=== PATIENT | male | born 1960 | race African-American/Black ===

== ENCOUNTER 2018-10-11 11:25 | Emergency (ER) | payer OTHER ==
[2018-10-11] MEDS ORDERED: PROPARACAINE 0.5% OPHTH DROPS 15 ML EACHEYE STA (12:16)
--- NOTE | 2018-10-11 12:18 | ED Physician Documentation ---
History of Present Illness - Stated complaint Stated Complaint: BRAMBILA - Chief complaint Chief Complaint: Cardiac - History obtained from History obtained from: Patient - History of Present Illness Timing: Yesterday (57-year-old gent with history of hypertension maintained for several years on stable dose of losartan. His last blood pressure check he thinks was probably a month or 2 ago at which time he estimates it was probably 140/95. Since yesterday he is had right upper eyelid swelling and a mild headache that is certainly not the worst headache of his life. He says he frequently gets headaches. It started behind the right eye and spread out across the forehead. He went to his primary care physician for this today and blood pressures were noted to be elevated so he was referred here for further evaluation and treatment. He also has nonspecific dizziness, not vertigo and not really lightheadedness. He denies weakness, numbness, tingling, fevers, neck stiffness.) Review of Systems Constitutional: denies: Fever, Chills Cardiac: denies: Chest pain / pressure, Palpitations Respiratory: denies: Dyspnea, Cough GI: denies: Abdominal Pain, Nausea, Vomiting, Constipation, Diarrhea : denies: Dysuria, Frequency PD PAST MEDICAL HISTORY - Past Medical History Past Medical History: Yes Cardiovascular: Hypertension Psych: Anxiety - Past Surgical History Past Surgical History: Yes Ortho: Rotator cuff repair, Spine surgery - Present Medications Home Medications: Ambulatory Orders Medication Instructions Recorded Confirmed Losartan [Cozaar] 25 mg PO DAILY 10/11/18 10/11/18 amLODIPine [Norvasc] 10 mg PO DAILY #30 tablet 10/11/18 - Allergies Allergies/Adverse Reactions: Allergies Allergy/AdvReac Type Severity Reaction Status Date / Time No Known Drug Allergies Allergy Verified 10/11/18 11:33 - Social History Does the pt smoke?: No Smoking Status: Never smoker Does the pt drink ETOH?: No Does the pt have substance abuse?: No - Immunizations Immunizations are current?: Yes - POLST Patient has POLST: No PD ED PE NORMAL - Vitals Vital signs reviewed: Yes - General General: Alert and oriented X 3, No acute distress - HEENT HEENT: PERRL, EOMI, Other ([place] 21OD, 20 OS; v mild angioedema, upper R lid, no stye) - Neck Neck: Supple, no meningeal sign, No bony TTP - Cardiac Cardiac: RRR, No murmur - Respiratory Respiratory: No respiratory distress, Clear bilaterally - Abdomen Abdomen: Normal bowel sounds, Soft, Non tender - Back Back: No CVA TTP, No spinal TTP - Derm Derm: Normal color, Warm and dry - Extremities Extremities: No edema, No calf tenderness / cord - Neuro Neuro: Alert and oriented X 3, records associate 2-12 intact, No motor deficit, No sensory deficit, Normal speech Eye Opening: Spontaneous Motor: Obeys Commands Verbal: Oriented GCS Score: 15 - Psych Psych: Normal mood, Normal affect Results - Vitals Vitals: Vital Signs - 24 hr 10/11/18 10/11/18 10/11/18 11:31 11:48 12:30 Temperature 36.4 C L Heart Rate 78 69 66 Respiratory 20 11 L 16 Rate Blood Pressure 184/123 H 181/116 H 165/112 H Blood Pressure 181/116 H [Right] O2 Saturation 98 98 97 Oxygen O2 Source Room air - EKG (time done) 1204 Rate: Rate (enter#) (64) Rhythm: NSR [place]: Normal Intervals: Prolonged [place] QRS: Normal Ischemia: Normal ST segments Computer interpretation: Agree with computer - Labs Labs: Laboratory Tests 10/11/18 10/11/18 12:27 12:27 WBC 3.1 L RBC 5.53 Hgb 15.7 Hct 48.4 MCV 87.5 MCH 28.4 MCHC 32.4 RDW 13.4 Plt Count 175 MPV 10.8 Neut # (Auto) 1.3 L Lymph # (Auto) 1.3 L Nolan # (Auto) 0.4 Eos # (Auto) 0.1 Baso # (Auto) 0.0 Absolute Nucleated RBC 0.00 Nucleated RBC % 0.0 Sodium 140 Potassium 4.2 Chloride 106 Carbon Dioxide 27 Anion Gap 7.0 BUN 10 Creatinine 1.3 H Estimated GFR (MDRD) 69 L Glucose 99 Calcium 8.9 Total Bilirubin 1.1 H AST 28 ALT 38 Alkaline Phosphatase 56 Total Protein 6.6 L Albumin 4.3 Globulin 2.3 Albumin/Globulin Ratio 1.9 Lipase 28 PD MEDICAL DECISION MAKING - ED course ED course: 57-year-old gentleman with right eyelid swelling that looks allergic more than anything else. This was his chief complaint when he went to his doctor's today. He also has a mild to moderate headache that he says it is nowhere near the worst headache of his life and is declining any medication for it. His exam is otherwise normal other than hypertension. There is no evidence of heart failure. Work-up here demonstrates his creatinine is mildly elevated at 1.3 and he has mild lymphopenia, no old labs available to compare with. He was observed, there was really no change in his blood pressure and we will start amlodipine in addition to his losartan for this. In the past he has been on another agent, he said he was taken off because it was made him cough so I presume it was lisinopril or similar. Departure - Departure Disposition: Home, Self Care Clinical Impression: Swollen eyelid Qualifiers: Laterality: right Qualified Code(s): H02.843 - Edema of right eye, unspecified eyelid Hypertension Qualifiers: Hypertension type: essential hypertension Qualified Code(s): I10 - Essential (primary) hypertension Condition: Good Record reviewed to determine appropriate education?: Yes Instructions: ED HTN Established Prescriptions: amLODIPine [Norvasc] 10 mg PO DAILY #30 tablet Comments: Follow-up with your doctor in 1 week for recheck and blood pressure check. Take the new prescription for blood pressure medication with you. Let him or her know that your creatinine is mildly elevated at 1.3. Return for new or worsening symptoms or for severe headache.
[2018-10-11 12:34] LABS: EOSINOPHILS # (AUTO) 0.1 10^3/uL (0.0-0.7); EOSINOPHILS % (AUTO) 3.2 %; HGB - HEMOGLOBIN 15.7 g/dL (14.0-18.0); LYMPHOCYTES # (AUTO) 1.3 10^3/uL (1.5-3.5); LYMPHOCYTES % (AUTO) 42.3 %; MEAN CORPUSCULAR HEMOGLOBIN 28.4 pg (27.0-31.0); MEAN CORPUSCULAR HGB CONC 32.4 g/dL (32.0-36.0); MEAN CORPUSCULAR VOLUME 87.5 fL (80.0-94.0); MEAN PLATELET VOLUME 10.8 fL (7.4-11.4); MONOCYTES # (AUTO) 0.4 10^3/uL (0.0-1.0); MONOCYTES % (AUTO) 12.5 %; NEUTROPHILS # (AUTO) 1.3 10^3/uL (1.5-6.6); PLT - PLATELET COUNT 175 10^3/uL (130-450); RED BLOOD COUNT 5.53 10^6/uL (4.70-6.10); RED CELL DISTRIBUTION WIDTH 13.4 % (12.0-15.0); WHITE BLOOD COUNT 3.1 x10^3/uL (4.8-10.8)
[2018-10-11 12:45] VITALS: BP 165/112
[2018-10-11 12:48] LABS: ALBUMIN 4.3 g/dL (3.2-5.5); ALBUMIN/GLOBULIN RATIO 1.9 (1.0-2.2); BILIRUBIN,TOTAL 1.1 mg/dL (0.2-1.0); CALCIUM 8.9 mg/dL (8.5-10.3); CREATININE 1.3 mg/dL (0.6-1.2); TOTAL PROTEIN 6.6 g/dL (6.7-8.2)
[2018-10-11] MEDS ORDERED: amLODIPine 5 MG TABLET PO STA (12:58)
== END 2018-10-11 13:10 | disposition home or self-care (01) ==
LOC: EDUNIT# → ED 11:25
DX: I10 Essential (primary) hypertension (principal); H02.841 Edema of right upper eyelid; R51 Headache; D72.810 Lymphocytopenia; I44.0 Atrioventricular block, first degree
CPT/HCPCS: 36415; 80053; 83690; 85025; 93005; 99283; A9270; J3490